=== PATIENT | male | born 1965 | race Caucasian/White ===

== ENCOUNTER 2016-09-17 08:25 | Day surgery (SDC) | payer BC ==
--- NOTE | 2016-09-16 17:32 | Pre-Procedure Note/Attestation ---
Pre-Procedure Note/Attestation Complete Prior to Procedure Planned Procedure: right Procedure Narrative: Rt shoulder ELA with injection Indications for Procedure Pre-Operative Diagnosis: Rt frozen shoulder Attestation I attest that I discussed the nature of the procedure; its benefits; risks and complications; and alternatives (and the risks and benefits of such alternatives ), prior to the procedure, with the patient (or the patient's legal marketing representative). I attest that, if there was a reasonable possibility of needing a blood transfusion, the patient (or the patient's legal marketing representative) was given the [facility] standardized written summary, pursuant to the Stewart Dasia Blood Safety Act ([place] Health and Safety Code # 1645, as amended). I attest that I re-evaluated the patient just prior to the surgery and that there has been no change in the patient's H&P, except as documented below: NONE ROSALINA MCLAUGHLIN Sep 16, 2016 17:32
[~2016-09-17] VITALS: Ht 182.9 cm; Wt 81.6 kg
[2016-09-17] VITALS (10 sets, daily range): BP systolic 118–138; BP diastolic 75–85
--- NOTE | 2016-09-17 08:02 | Anethesia Preoperative Eval ---
Anesthesia Pre-op PMH/ROS General Date of Evaluation: Sep 17, 2016 Anesthesiologist: Les ASA Score: ASA 2 Mallampati Score Class I : Soft palate, uvula, fauces, pillars visible Class II: Soft palate, uvula, fauces visible Class III: Soft palate, base of uvula visible Class IV: Only hard plate visible Mallampati Classification: Class II Surgeon: Francisco Diagnosis: Right frozen shoulder Surgical Procedure: Right shoulder manipulation Anesthesia History: none Family History: no anesthesia problems Allergies: Coded Allergies: ERYTHROMYCIN BASE (Verified Allergy, Intermediate, rash , 09/17/16) Medications: see eMAR Past Medical History Cardiovascular: Reports: HTN, Denies: CAD, MT, arrhythmia, other, valve dz Pulmonary: Denies: COPD, BELLA, asthma, other Gastrointestinal/Genitourinary: Reports: GERD, Denies: CRI, ESRD, other Neurologic/Psychiatric: Denies: CVA, TIA, dementia, depression/anxiety, other Endocrine: Reports: DM, Denies: hypothyroidism, other, steroids HEENT: Denies: AFOGNAK (L), AFOGNAK (R), cataract (L), cataract (R), glaucoma, other Hematology/Immune: Denies: DVT, anemia, bleeding disorder, other Musculoskeletal/Integumentary: Denies: DDD, DJD, OA, RA, edema, other Anesthesia Pre-op Phys. Exam Physician Exam see chart Constitutional: NAD Cardiovascular: RRR Respiratory: CTA Airway Exam Mallampati Score: Class II MO: full ROM: full Anesthesia Pre-op A/P Labs see chart Studies Pre-op Studies: EKG - sr Risk Assessment & Plan Assessment: ASA II Plan: MAC and PNB Status Change Before Surgery: No Pre-Antibiotics Drug: JEANINE KEY M.D. Sep 17, 2016 08:02
[2016-09-17] MEDS ORDERED: ceFAZolin sod 1 GM in NS 55 ML IVPB ONE (09:05)
[2016-09-17] MEDS ORDERED: celeBREX 200mg Cap **SURGERY PATIENTS ONLY ORAL ONE (09:05)
[2016-09-17] MEDS ORDERED: oxyCONTIN 20mg tab ORAL ONE (09:05)
[2016-09-17 09:25] LABS: BASOPHILS % (AUTO) 1.5 % (0.0-2.0); EOSINOPHILS % (AUTO) 2.8 % (0.0-3.0); LYMPHOCYTES % (AUTO) 36.2 % (20.0-45.0); MEAN CORPUSCULAR HEMOGLOBIN 35.3 PG (27.0-31.0); MEAN CORPUSCULAR HGB CONC 36.5 G/DL (32.0-36.0); MEAN CORPUSCULAR VOLUME 97 FL (80-99); MEAN PLATELET VOLUME 6.8 FL (6.5-10.1); MONOCYTES % (AUTO) 11.6 % (1.0-10.0); NEUTROPHILS % (AUTO) 47.9 % (45.0-75.0); PLATELET COUNT 203 K/UL (150-450); RED BLOOD COUNT 4.35 M/UL (4.70-6.10); WHITE BLOOD COUNT 4.5 K/UL (4.8-10.8)
[2016-09-17] MEDS ORDERED: PREVACID30 M2 ORAL (09:27)
[2016-09-17] MEDS ORDERED: LANTUS SOL100 UNIT/1 SUBQ (09:27)
[2016-09-17] MEDS ORDERED: ASPIRIN81 M3 PO (09:27)
[2016-09-17] MEDS ORDERED: LISINOPRIL5 MG ORAL (09:27)
[2016-09-17] MEDS ORDERED: NOVOLOG100 UNIT/3 SUBQ (09:27)
[2016-09-17] MEDS ORDERED: MULTIVITAMINS1 EAC2 ORAL (09:27)
[2016-09-17] MEDS ORDERED: VITAMIN C500 M1 ORAL (09:27)
[2016-09-17 09:39] LABS: ANION GAP 15 (5-15); CALCIUM 9.2 mg/dL (8.6-10.2); CARBON DIOXIDE 25 mEQ/L (20-30); CHLORIDE 101 mEQ/L (98-107); CREATININE 0.7 mg/dL (0.7-1.2); GLOMERULAR FILTRATION RATE > 60 mL/min (>60); HEMOLYSIS 7; POTASSIUM 4.1 mEQ/L (3.4-4.9); SODIUM 141 mEQ/L (135-145)
[2016-09-17] MEDS ORDERED: Ropivacaine 5mg/ml Vial 20ml INJ ONE ×2 (10:03→10:18)
[2016-09-17] MEDS ORDERED: Lidocaine 1% 10mg/ml/Epi 0.005mg/ml 30ml vial INJ ONE (10:15)
[2016-09-17] MEDS ORDERED: Kenalog-40 1ml Vial ONE (10:15)
[2016-09-17] MEDS ORDERED: Propofol 10mg/ml 20ml IV ONE (10:18)
[2016-09-17] MEDS ORDERED: LR 1000ml ONE (10:30)
[2016-09-17] MEDS ORDERED: Midazolam 2mg/2ml Inj ONE (10:30)
[2016-09-17] MEDS ORDERED: Lidocaine 1% MPF 10mg/ml 5ml ONE (10:30)
[2016-09-17] MEDS ORDERED: Isovue-M 300 15ml INJ ONE (10:46)
--- NOTE | 2016-09-17 10:58 | Brief Operative Note ---
Immediate Post Operative Note Operative Note Chief Complaint: rt shoulder pain Pre-op Diagnosis: rt frozen shoulder Procedure: rt shoulder allen with injection Post-op Diagnosis: same as pre-op Findings: consistent w/pre-op dx studies Surgeon: md freya Anesthesiologist: md mary Anesthesia: general Specimen: none Complications: none Condition: stable Estimated Blood Loss: none Drains: none Implant(s) used?: No TULIO ZIMMER Sep 17, 2016 10:58
[2016-09-17] MEDS ORDERED: D5 1/2NS 1,000 ML IV SCH (11:00)
[2016-09-17] MEDS ORDERED: Norco 5mg/325mg tab ORAL PRN (11:00)
[2016-09-17] MEDS ORDERED: Tylenol #3 tab (300mg/30mg) ORAL PRN (11:00)
[2016-09-17] MEDS ORDERED: HYDROmorphone 1mg/ml Carpuject SUBQ PRN (11:00)
[2016-09-17] MEDS ORDERED: LR 1000ml 1,000 ML IVLG SCH (11:25)
--- NOTE | 2016-09-17 11:25 | Immediate Post-Op Evaluation ---
Immediate Post-Op Evalulation Immediate Post-Op Evalulation Procedure: Right shoulder manipulation Date of Evaluation: Sep 17, 2016 Time of Evaluation: 11:11 IV Fluids: 400 Blood Products: 0 Estimated Blood Loss: 0 Urinary Output: 0 Blood Pressure Systolic: 129 Blood Pressure Diastolic: 80 Pulse Rate: 64 Respiratory Rate: 16 O2 Sat by Pulse Oximetry: 100 Temperature (Fahrenheit): 97.1 Pain Score (1-10): 0 Nausea: No Vomiting: No Complications 0 Patient Status: awake, reacts, patent, none Hydration Status: adequate Drug: N/A JEANINE COLLADO M.D. Sep 17, 2016 11:25
--- NOTE | 2016-09-17 11:27 | 48 Hour Post Anesthesia Eval ---
Post Anesthesia Evaluation Procedure: Right shoulder manipulation Date of Evaluation: Sep 17, 2016 Time of Evaluation: 12:10 Blood Pressure Systolic: 120 0: 80 Pulse Rate: 66 Respiratory Rate: 18 Temperature (Fahrenheit): 97.5 O2 Sat by Pulse Oximetry: 97 Airway: patent Nausea: No Vomiting: No Pain Intensity: 0 Hydration Status: adequate Cardiopulmonary Status: at baseline Mental Status/LOC: patient returned to baseline Post-Anesthesia Complications: 0 Follow-up care needed: ready to discharge JEANINE COLLADO M.D. Sep 17, 2016 11:27
[2016-09-17] MEDS ORDERED: Hydromorphone 0.5mg/0.5ml inj IVP PRN (11:30)
[2016-09-17] MEDS ORDERED: Ketorolac 30mg Inj IV PRN (11:30)
[2016-09-17] MEDS ORDERED: fentaNYL 100 mcg/2 mL IV PRN (11:30)
[2016-09-17] MEDS ORDERED: DiphenhydrAMINE 50mg/ml Inj IVP PRN (11:30)
--- NOTE | 2016-09-17 15:45 | Diagnostic Imaging Report ---
Indication: Pain Findings: Fluoroscopic views of the right shoulder were obtained. Procedure performed by Dr. Singh. Intraoperative imaging showing arthrogram of the right shoulder. Contrast is noted initially within soft tissues. Subsequently contrast noted within the joint space. Impression: Troponin imaging
--- NOTE | 2016-09-17 17:45 | Operative Note - Dictated ---
DATE OF OPERATION: 09/17/2016 PREOPERATIVE DIAGNOSIS: Right shoulder adhesive capsulitis, unresponsive to physical therapy and symptomatic treatment. POSTOPERATIVE DIAGNOSIS: Right shoulder adhesive capsulitis, unresponsive to physical therapy and symptomatic treatment. PROCEDURE: 1. Right shoulder manipulation under anesthesia. 2. Right shoulder arthrogram. 3. Right shoulder injection of 8 mL of ropivacaine and 2 mL of Kenalog 40 mg/mL. SURGEON: Ming Singh M.D. TRADE SHOW MANAGER: None. ANESTHESIOLOGIST: Yuli Saldana M.D. ANESTHESIA: General mask anesthesia combined with interscalene block for postoperative pain management. EBL: Less than 20 mL. COMPLICATIONS: None. BRIEF HISTORY: The patient is a pleasant 51-year-old gentleman, who has had ongoing right shoulder pain. He started on physical therapy and has made some progress, but not as much as he would like to. He continued to be symptomatic with decreased range of motion, stiffness, and pain. After full discussion of risks and benefits of the surgery and complications associated with it including infection, bleeding, neurovascular complication, possibility of continued pain, stiffness, recurrence of the symptoms, and other complications that may arise, he opted for surgical treatment as described above. OPERATIVE PROCEDURE: The patient was brought to the operating room table and was placed supine. All pressure points were well padded. General mask anesthesia was induced and the right shoulder was then manipulated. The shoulder was placed gently into full flexion, abduction, external rotation, internal rotation, and adduction and the shoulder was placed through range of motion, there was gentle stiffness could be felt and as this was pushed through, gentle crackling could be heard as the scar tissue was being released. Once the full range of motion was obtained in this fashion, the image intensifier was brought in. The glenohumeral joint was identified. Anterior aspect of the shoulder was prepped and draped in the usual sterile fashion. An 18-gauge needle was placed intra-articular in the glenohumeral joint. The arthrogram was performed with 5 mL of Isovue. The glenohumeral joint was intact and there was no extravasation in the subacromial space and there was no rotator cuff tear. At this point, once the intra-articular position of the needle was confirmed, Rupivicane with Kenalog was injected without any complication. The needle was removed and the shoulder was cleaned and Band-Aid was applied. The patient was then awaked and was taken to recovery room in stable condition. Ming Singh M.D. DR: ELYSSA JOB#: [id number] CC: PETER
--- NOTE | 2016-09-19 09:45 | Cardiology Report ---
APPROVED REPORT EKG Measurement Heart [id number] Normal sinus rhythm Early repolarization Normal ECG
== END 2016-09-17 12:40 | disposition home or self-care (01) ==
LOC: SUR 08:25
DX: M75.01 Adhesive capsulitis of right shoulder (principal); E10.9 Type 1 diabetes mellitus without complications; I10 Essential (primary) hypertension; K21.9 Gastro-esophageal reflux disease without esophagitis; Z88.3 Allergy status to other anti-infective agents
CPT/HCPCS: 36415; 76000; 80048; 82962; 85025; 93005; 94003; 94150; J2250

== ENCOUNTER 2017-06-22 21:34 | Emergency (ER) | payer BC ==
[~2017-06-22] VITALS: Ht 182.9 cm; Wt 82.1 kg
[~2017-06-22 21:34] MED LIST: ASPIRIN81 M3 PO; LANTUS SOL100 UNIT/1 SUBQ; LISINOPRIL5 MG ORAL; MULTIVITAMINS1 EAC2 ORAL; NOVOLOG100 UNIT/3 SUBQ; PREVACID30 M2 ORAL; VITAMIN C500 M1 ORAL
[2017-06-22] MEDS ORDERED: Isentress 400mg tab ORAL ONE (22:00)
[2017-06-22 22:02] VITALS: BP 150/89
[2017-06-22] MEDS ORDERED: ISENTRESS400 MG ORAL (22:02)
[2017-06-22] MEDS ORDERED: TRUVADA 200 MG1 EAC1 ORAL (22:02)
--- NOTE | 2017-06-22 22:26 | Emergency Room Report ---
History of Present Illness General Chief Complaint: General Complaint Source: Patient Present Illness HPI 51-year-old male presents ED for evaluation. Patient states that he was recently had possible exposure to HIV. Patient states he told his PMD and his PMD prescribed medications for him. States he is unable to fill the prescriptions. Patient states that if he waits till the morning the 72 hours will have passed. Patient was recommended by PMD to come to ER for his medication. Patient states he feels fine at this time. Denies any weakness. Denies any fevers or chills. No other aggravating relieving factors. Denies any other associated symptoms Allergies: Coded Allergies: ERYTHROMYCIN BASE (Verified Allergy, Intermediate, rash , 09/17/16) Patient History Past Medical History: DM, HTN Past Surgical History: none Pertinent Family History: none Social History: Denies: smoking, alcohol use, drug use Immunizations: UTD Reviewed Nursing Documentation: PMH: Agreed; PSxH: Agreed Nursing Documentation-PMH Hx Cardiac Problems: Yes Hx Hypertension: Yes Hx Diabetes: Yes - type 1 Hx Cancer: No Hx Gastrointestinal Problems: Yes Hx Neurological Problems: No Review of Systems All Other Systems: negative except mentioned in HPI Physical Exam Vital Signs Date Time Temp Pulse Resp B/P (MAP) Pulse Ox O2 Delivery O2 Flow Rate FiO2 06/22/17 21:38 98.1 80 16 150/89 94 Room Air 98.1 Sp02 EP Interpretation: reviewed, normal General Appearance: no apparent distress, alert, GCS 15, non-toxic Head: normocephalic, atraumatic Eyes: bilateral eye normal inspection, bilateral eye PERRL ENT: hearing grossly normal, normal pharynx, no angioedema, normal voice Neck: full range of motion, supple/symm/no masses Respiratory: chest non-tender, lungs clear, normal breath sounds, speaking full sentences Cardiovascular #1: regular rate, rhythm, no edema Cardiovascular #2: 2+ carotid (R), 2+ carotid (L), 2+ radial (R), 2+ radial (L) , 2+ dorsalis pedis (R), 2+ dorsalis pedis (L) Gastrointestinal: normal bowel sounds, non tender, soft, non-distended, no guarding, no rebound Rectal: deferred Genitourinary: normal inspection, no CVA tenderness Musculoskeletal: back normal, gait/station normal, normal range of motion, non- tender Neurologic: alert, oriented x3, responsive, motor strength/tone normal, sensory intact, speech normal Psychiatric: judgement/insight normal, memory normal, mood/affect normal, no suicidal/homicidal ideation Reflexes: 3+ bicep (R), 3+ bicep (L), 3+ tricep (R), 3+ tricep (L), 3+ knee (R) , 3+ knee (L) Skin: normal color, no rash, warm/dry, well hydrated Lymphatic: no adenopathy Medical Decision Making Diagnostic Impression: Primary Impression: History of exposure to HIV ER Course 51-year-old male requesting HIV prophylaxis medications. Patient placed on stretcher. After initial history and physical I discussed risk and benefit of starting the medication. Patient states he wishes to start the medication I offered patient for lab work including LFTs. Patient states he had blood work done recently with his PMD and everything was normal. I agree that patient will not require additional blood work at that time as recent bloodwork will be sufficient for baseline Patient given Truvada and insentress here. give 1 month prescription for these medications in the event that he is unable to fill his prior prescriptions Diagnoses- history of exposure to HIV stable and discharged to home with rx truvada, insentress. Followup with PMD. Return to ED if symptoms recur or worsen Last Vital Signs Date Time Temp Pulse Resp B/P (MAP) Pulse Ox O2 Delivery O2 Flow Rate FiO2 06/22/17 22:02 98.1 80 16 150/89 94 Room Air 98.1 Status: improved Disposition: HOME, SELF-CARE Condition: Stable Scripts Raltegravir (Isentress) 400 Mg Tablet 400 MG ORAL EVERY 12 HOURS for 30 Days, TAB Prov: Castillo Rivas MD 06/22/17 Emtricitabine/Tenofovir 200-300MG* (TRUVADA 200-300MG*) 1 Each Tablet 1 TAB ORAL DAILY, #30 TAB Prov: Castillo Rivas MD 06/22/17 Referrals: NON PHYSICIAN (PCP) Patient Instructions: HIV Antibody Test Castillo Rivas MD Jun 22, 2017 22:26
[2017-06-22 23:04] VITALS: BP 150/89
== END 2017-06-22 22:45 | disposition home or self-care (01) ==
LOC: EMR 21:45
DX: Z20.6 Contact with and (suspected) exposure to human immunodeficiency virus [HIV] (principal); I10 Essential (primary) hypertension; E10.9 Type 1 diabetes mellitus without complications
CPT/HCPCS: 99284